=== PATIENT | male | born 1995 | race Caucasian/White ===

== ENCOUNTER 2017-09-20 17:26 | Emergency (ER) | payer MEDICAID ==
[~2017-09-20] VITALS: Ht 177.8 cm; Wt 72.6 kg
[~2017-09-20 17:26] MED LIST: AZITHROMYCIN 2250 MG PO; CATAPRES0.1 MG PO; IBUPROFEN 600600 M1 PO; NOHOMEMEDICATIONS; PROVENTIL HFA6.7 G1 INH; TRAMADOL 50 MG50 MG PO; ZOFRAN 4 MG ORAL4 M1 DIS
[2017-09-20 18:19] LABS: ABSOLUTE BASOPHILS 0.1 thou/uL (0.0-0.2); ABSOLUTE EOSINOPHILS 0.2 thou/uL (0.0-0.7); ABSOLUTE LYMPHOCYTES 1.8 thou/uL (0.8-5.3); ABSOLUTE MONOCYTES 0.4 thou/uL (0.0-1.2); ABSOLUTE NEUTROPHILS 2.3 thou/uL (1.6-8.1); BASOPHILS 1.1 %; EOSINOPHILS 4.3 %; HEMATOCRIT 44.7 % (42.0-52.0); HEMOGLOBIN 15.2 gm/dL (14.0-18.0); LYMPHOCYTES 38.2 %; MCH 30.6 pg (26.0-34.0); MCV 89.9 fL (80.0-100.0); MONOCYTES 8.7 %; MPV 9.2 fl. (7.2-11.1); NUCLEATED RBCS 0 /100WBC; PLATELET COUNT* 227 thou/uL (150-400); POLYS 47.7 %; RBC 4.97 mil/uL (4.50-6.00); RDW-CV 12.7 % (10.5-14.5); WBC 4.8 thou/uL (4.0-11.0)
[2017-09-20] MEDS ORDERED: ZOFRAN ODT4 MG SUBLING (18:26)
[2017-09-20 18:37] LABS: CALCIUM 8.5 mg/dL (8.5-10.1); CREATININE 0.9 mg/dL (0.6-1.3); POTASSIUM 3.9 mmol/L (3.5-5.1)
[2017-09-20 18:42] LABS: ALBUMIN 4.4 g/dL (3.4-5.0); TOTAL BILIRUBIN 0.3 mg/dL (<0.1-1.0); TOTAL PROTEIN 7.1 g/dL (6.4-8.2)
[2017-09-20 18:44] VITALS: BP 118/74
--- NOTE | 2017-09-21 12:01 | EKG ---
[place] [address] ELECTROCARDIOGRAM REPORT Name: JOSE NULL Room: [facility]#: [id number] Admission: 09/20/17 Attend Phys: Discharge: 09/20/17 Date of : [birth year] Report #: [id number] THIS REPORT FOR: //name// [facility] ED Test Date: 2017-09-20 Test Time: 17:30:48 Pat Name: JOSE NULL Department: Room: Gender: M [employer] Examiner: : 1995 Requested By: Catarino Lira Order Number: [id number] MD: Mundo Jay Measurements Intervals [place] Rate: 70 P: 35 GA: 151 QRS: 33 QRSD: 100 T: 31 QT: 376 QTc: 406 Interpretive Statements Sinus rhythm Compared to ECG 04/28/2014 03:08:51 First degree AV block no longer present Electronically Signed On 09-21-2017 12:00:59 CDT by Mundo Jay [email or web address] <ELECTRONICALLY SIGNED> By: Mundo Jay MD, [facility] 09/21/17 1200 1730 1730 Mundo Jay MD, FACC /EPI
== END 2017-09-20 18:47 | disposition home or self-care (01) ==
LOC: M.ERS 17:26
PROVIDERS: Family Medicine
DX: R07.9 Chest pain, unspecified (principal); R11.2 Nausea with vomiting, unspecified; R06.02 Shortness of breath; Z88.8 Allergy status to other drugs, medicaments and biological substances